=== PATIENT | male | born 1985 | race American Indian/Alaskan Native ===

== ENCOUNTER 2017-01-26 00:11 | Emergency (ER) | payer OTHER ==
[2017-01-26 00:24] VITALS: BP 150/106
--- NOTE | 2017-01-26 05:15 | Emergency Department Report ---
HPI - General Chief Complaint: Dental/Oral Time Seen by Provider: 01/26/17 04:57 - HPI HPI: The patient is a 31 year-old male who presents to ED complaining of 8/10 pain in the both upper side of his mouth x several days . Patient states that the pain started 5 days ago and has increased in severity over the last few days. The pain is exacerbated by eating and opening of the mouth. Patient states the pain is alleviated initially with pain medication but comes back. Patient graciously to have Tylenol and Goody powder with no showed relief. Patient states that it radiates towards jaws. Patient describes a as a throbbing, pressure-like sensation. Patient states otherwise well and has no other complaints. Patient has had no fevers and no chills. No chest pain, no shortness of breath. No abdominal pain. No shortness of breath or recent trauma to the face. ED Past Medical Hx - Past Medical History Previous Medical History?: No - Surgical History Past Surgical History?: No Additional Surgical History: head surgery - Social History Smoking Status: Former Smoker Substance Use Type: None - Medications Home Medications: Home Medications Medication Instructions Recorded Confirmed Last Taken Type Penicillin Vk [Veetids TAB] 500 mg PO QID #40 tablet 09/13/15 Unknown Rx Acetaminophen/Codeine [Tylenol 1 tab PO Q6H PRN #10 tab 01/26/17 Unknown Rx /Codeine # 3 tab] Amoxicillin [Amoxicillin TAB] 875 mg PO BID #20 tablet 01/26/17 Unknown Rx Ibuprofen [Motrin 600 MG tab] 600 mg PO Q8H PRN #20 tablet 01/26/17 Unknown Rx ED Review of Systems ROS: Stated complaint: TOOTHACHE Other details as noted in HPI Constitutional: denies: chills, fever Eyes: denies: eye pain, eye discharge, vision change ENT: denies: ear pain, throat pain Respiratory: denies: cough, shortness of breath, wheezing Cardiovascular: denies: chest pain, palpitations Endocrine: no symptoms reported Gastrointestinal: denies: abdominal pain, nausea, diarrhea Genitourinary: denies: urgency, dysuria Musculoskeletal: denies: back pain, joint swelling, arthralgia Skin: denies: rash, lesions Neurological: denies: headache, weakness, paresthesias Psychiatric: denies: anxiety, depression Hematological/Lymphatic: denies: easy bleeding, easy bruising Physical Exam - Physical Exam Vital Signs: Vital Signs 01/26/17 00:16 Temperature 98.9 F Pulse Rate 69 Respiratory 18 Rate Blood Pressure 150/106 O2 Sat by Pulse 99 Oximetry Physical Exam: GENERAL: Alert and oriented x3, no apparent distress, Normal Gait, atraumatic. HEAD: Head is normocephalic and a-traumatic. EARS: symetrical, atraumatic, non tender, ear canal clear and moderate cerumen, tympanic membrance non inflamed. gross auditory nml bilaterally. MOUTH:Mouth is well hydrated and without lesions. Tonsils nonerythematous or swollen, Uvula midline, Tongue not elevated. Mucous membranes are moist. Posterior pharynx clear, no exudate or lesions. Patent airways. Partially missing to 15, 14, 3 and 4. Tenderness to palpation to #2. No gingiva enlargement, dental caries seen on partially minutes into gums No active bleeding , no active change NECK: Supple. Non edematous, No lymphadenopathy LUNGS: Symetrical with respiration, No wheezing, no rales or crackles, CTAB. HEART: S1, S2 present, regular rate and rhythm without murmur, no rubs, no gallops. Non tender to palpation SKIN: Warm and dry, No lesions, No ulceration or induration present. ED Course Vital Signs 01/26/17 00:16 Temperature 98.9 F Pulse Rate 69 Respiratory 18 Rate Blood Pressure 150/106 O2 Sat by Pulse 99 Oximetry ED Medical Decision Making - Medical Decision Making 30-year-old female who presents with bilateral upper Facial pain secondary to odontogenic caries ED course: Patient received 500 mg of amoxicillin, 1 tablet of Ibu 800 Odontogenic infection versus ear infection. Based upon history and physical examination, pain is a result of an infection of tooth number 2, 3 , 14,15 and that the pain she feels on the right side of his face and towards the ear is referred pain from this infectious process. She has no evidence of acute impending airway compromise. At this point, patient will be discharged home on some antibiotics and pain trial, she will do well with an outpatient course of antibiotics. Follow up with the Dental Clinic as referred Critical care attestation.: If time is entered above; I have spent that time in minutes in the direct care of this critically ill patient, excluding procedure time. ED Disposition Clinical Impression: Pain, dental, Dental caries Disposition: DC- TO HOME OR SELFCARE Is pt being admited?: No Does the pt Need Aspirin: No Condition: Stable Instructions: Dental Caries (ED), Toothache (ED) Prescriptions: Acetaminophen/Codeine [Tylenol /Codeine # 3 tab] 1 tab PO Q6H PRN #10 tab PRN Reason: Pain Amoxicillin [Amoxicillin TAB] 875 mg PO BID #20 tablet Ibuprofen [Motrin 600 MG tab] 600 mg PO Q8H PRN #20 tablet PRN Reason: Pain Referrals: PRIMARY CARE, [Primary Care Provider] - 3-5 Days [facility] [Outside] - 3-5 Days [facility] [Outside] - 3-5 Days [facility] [Outside] - 3-5 Days Forms: Work/School Release Form(ED) Time of Disposition: 05:35
[2017-01-26] MEDS ORDERED: MOTRIN PO ONE (05:24)
[2017-01-26] MEDS ORDERED: TRIMOX PO ONE (05:24)
== END 2017-01-26 05:50 | disposition home or self-care (01) ==
LOC: ED 00:11
DX: K02.9 Dental caries, unspecified (principal); Z87.891 Personal history of nicotine dependence
CPT/HCPCS: 99282

== ENCOUNTER 2017-08-06 14:51 | Emergency (ER) | payer OTHER ==
[2017-08-06 15:14] VITALS: BP 108/65
== END 2017-08-06 22:03 | disposition left against medical advice (07) ==
LOC: ED 14:51
DX: Z53.21 Procedure and treatment not carried out due to patient leaving prior to being seen by health care provider (principal)

== ENCOUNTER 2020-07-30 19:47 | Emergency (ER) | payer SELFPAY ==
--- NOTE | 2020-07-30 20:42 | Emergency Department Report ---
Stated Complaint: PENILE DISCHARGE/DISCOLORATION - HPI History of Present Illness: 34-year-old -[place] male presents to the emergency room for penile discharge x5 days. Patient denies any nausea no vomiting no fever no chills no abdominal pain or diarrhea. Patient reports he does have a primary care provider. He denies any testicular pain no groin pain. - Exam Physical Exam: Alert and oriented x3 no acute distress nontoxic in appearance Nonlabored breathing No abdominal tenderness No groin tenderness, no testicular tenderness no lesions appreciated no lymphadenopathy in the groin area appreciated discharge from the penile head. Ambulatory without difficulties MSE screening note: Focused history and physical exam performed. Due to findings the following was ordered: 34-year-old -[place] male presents to the emergency room for penile discharge x5 days. Patient denies any nausea no vomiting no fever no chills no abdominal pain or diarrhea. Patient reports he does have a primary care provider. He denies any testicular pain no groin pain. Discussed with patient he can follow-up at the health department or urgent care or primary care provider. ED Disposition for MSE Disposition: MED SCREENING EXAM-LEFT Is pt being admited?: No Does the pt Need Aspirin: No Condition: Stable Additional Instructions: Follow-up at the health department or urgent care. Referrals: [facility] [Outside] - 3-5 Days [facility] [Outside] - 3-5 Days Forms: Work/School Release Form(ED)
[2020-07-30 20:44] VITALS: BP 156/77
== END 2020-07-30 20:55 | disposition left against medical advice (07) ==
LOC: ED 19:47
DX: R36.9 Urethral discharge, unspecified (principal); Z53.21 Procedure and treatment not carried out due to patient leaving prior to being seen by health care provider